=== PATIENT | female | born 2000 | race Caucasian/White ===

== ENCOUNTER 2023-11-04 10:30 | Outpatient (RCR) | payer OTHER, SELFPAY ==
[2023-11-04 13:14] VITALS: BP 106/66; PULSE 60; RESP 14; TEMP 37
--- NOTE | 2023-11-04 13:15 | PC.NURSE ---
Pt is a 23 y/o female, A&O x 4, with a referral from [facility] for suicidal ideation in September 2023. She reports she has recently removed all blades from her home. She reports her anxiety is high , and depression is better . She states stress and anxiety where heighten when she moved back home from college and was staying with her mother. She reports a lot of conflict with her mother regarding her fiance. She has now moved in with boyfriend into an apartment. Patient reports she was drinking heavily 6-8 shots of vodka 2-3x weekly prior to hospitalization and denies recent alcohol use for 6 weeks. She states on occasion she will take edible marijuana, last used 4 wks ago. Appearnece is clean, well groomed, dressed appropriate for age/ context. Speech is clear, soft spoken, she describes her mood as fine no further elaboration offered. She denies hallucinations, thought so self harm , denies active SI/HI and reports SI- is passive and fleeting without plan or intent. Memory is intact to conversion. She reports her appetite is good and sleeps approximately 6-7 hrs each night. Medications reconciled with [facility]. She reports taking her medications as prescribed and her support system is her fie.[facility]
--- NOTE | 2023-11-04 15:20 | HO.PHP ---
After programming today pt met with [facility] provider then this met with bond writer. Pt asked to discharge from [facility], stated she felt the groups were too intense and she felt overwhelmed. Pt stated she feels she has been improving since leaving inpatient 2 months ago and feels afraid the groups will bring back negative feelings, stating she felt increasingly anxious and negative as the day went on. Pt was provided support and educated on the goals of [facility], pt stated she has a therapist she meets with weekly and is open to a DBT support group in the community, but felt at this time PHP was too much and felt sure she did not want to continue. Pt identified several positives in her life including preparing for her upcoming wedding and supportive family she is with regularly. Pt also has a med provider and expressed positive results from her current medication regimen set by her outpatient provider. Pt was provided the contact info for Juan Pablo Carranza at [facility] who conducts a DBT group. Pt and bond writer called Juan Pablo Carranza together but voicemail states he is out of the office until Friday. Pt states she will speak to her therapist about it and will call him independently to find out more about his program. Pt encouraged to return to [facility] should she feel her symptoms increase, pt denied SI.
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
== END 2023-11-04 23:59 | disposition home or self-care (01) ==
LOC: HO.PHPA 10:30
PROVIDERS: Visit Provider Psychiatry & Neurology Psychiatry
DX: F41.1 Generalized anxiety disorder (principal); F32.A Depression, unspecified; F43.10 Post-traumatic stress disorder, unspecified; F10.10 Alcohol abuse, uncomplicated; Z79.899 Other long term (current) drug therapy
CPT/HCPCS: 90791; 90853

== ENCOUNTER → 2023-11-04 10:30 | Outpatient (BNV) | payer OTHER, SELFPAY | PROVIDERS: Visit Provider Psychiatry & Neurology Psychiatry | DX: F41.1 Generalized anxiety disorder (principal); F32.A Depression, unspecified; F43.10 Post-traumatic stress disorder, unspecified; F10.10 Alcohol abuse, uncomplicated | CPT/HCPCS: 90792 ==